=== PATIENT | male | born 1970 | race Caucasian/White ===

== ENCOUNTER → 2018-08-11 | Outpatient (CLI) | payer SELFPAY ==
[2018-08-11 20:02] LABS: URIC ACID 7.8 MG/DL (3.5-7.2)
== END ==
LOC: M WUC 16:03
DX: M10.072 Idiopathic gout, left ankle and foot (principal)
CPT/HCPCS: 84550

== ENCOUNTER 2019-10-26 06:53 | Day surgery (SDC) | payer BC ==
[~2019-10-26] VITALS: Ht 182.9 cm; Wt 114.8 kg
[~2019-10-26 06:53] MED LIST: COQ-100C5 PO; ENAL5TAB7 PO; FISH1000 PO; VITA400T15 PO
[2019-10-26] MEDS ORDERED: NS 1,000 ML IV ONE (07:00)
[2019-10-26] MEDS ORDERED: PROPOFOL 200 MG/20 ML VIAL As Ordered ONE (07:14)
[2019-10-26] MEDS ORDERED: ASPI81TA85 PO (07:32)
[2019-10-26] MEDS ORDERED: NON-325T5 PO (07:32)
--- NOTE | 2019-10-26 08:43 | ROOR ---
Patient Name: Ryan Lane Procedure Date: 10/26/2019 8:21 AM Date of : 1970 Age: 49 Room: [facility] Gender: Male Note Status: Finalized Procedure: Colonoscopy Indications: High risk colon cancer surveillance: Personal history of colonic polyps Providers: Randy FULLER MD Referring MD: DANIEL Duarte Requesting Provider: Medicines: Monitored Anesthesia Care Complications: No immediate complications. Procedure: Pre-Anesthesia Assessment: - The heart rate, respiratory rate, oxygen saturations, blood pressure, adequacy of pulmonary ventilation, and response to care were monitored throughout the procedure. The Colonoscope was introduced through the anus and advanced to the terminal ileum, with identification of the appendiceal orifice and IC valve. The colonoscopy was performed without difficulty. The patient tolerated the procedure well. The quality of the bowel preparation was good. Findings: The perianal and digital rectal examinations were normal. Multiple medium-mouthed diverticula were found in the sigmoid colon. Internal hemorrhoids were found during retroflexion. The hemorrhoids were medium-sized. The exam was otherwise without abnormality on direct and retroflexion views. Impression: - Diverticulosis in the sigmoid colon. - Internal hemorrhoids. - The colon examination was otherwise normal on direct and retroflexion views. - No specimens collected. Recommendation: - Repeat colonoscopy in 5 years for surveillance. Randy Fuller MD Randy FULLER MD 10/26/2019 8:43:18 AM Electronically signed by Randy FULLER MD Number of Addenda: 0 Note Initiated On: 10/26/2019 8:21 AM Estimated Blood Loss: Estimated blood loss: none.
[2019-10-26 09:00] VITALS: BP 133/81
== END 2019-10-26 09:10 | disposition home or self-care (01) ==
LOC: M OPP 06:53
PROVIDERS: ATTEND Internal Medicine Gastroenterology
DX: Z86.010 Personal history of colon polyps (principal); K57.30 Diverticulosis of large intestine without perforation or abscess without bleeding; K64.8 Other hemorrhoids; I10 Essential (primary) hypertension; G47.30 Sleep apnea, unspecified; Z79.899 Other long term (current) drug therapy; Z82.49 Family history of ischemic heart disease and other diseases of the circulatory system; Z80.1 Family history of malignant neoplasm of trachea, bronchus and lung

== ENCOUNTER → 2023-10-20 | Day surgery (SDC) | payer BC ==
[~2023-10-20] VITALS: Ht 182.9 cm; Wt 142.6 kg
[~2023-10-20] MED LIST changes: +ACET32TAB PO; +AMOX875T2 PO; +ASPI81TA86 PO; +BENZ200C70 PO; +CALTTAB6 PO; +CIDA500T2 PO; +CLAR10CA3 PO; +COLL1TAB PO; +D3 H10002 PO; +ENAL5TAB36 PO; -ENAL5TAB7 PO; +LIDOCAINE 2% 100MG/5ML SDV (FOR ANES.) As Ordered ONE; +LOSA100T5 PO; +NS 1,000 ML IV ONE; +OMEG12004 PO; +TARTCAP PO; +propofoL 200 MG/20 ML VIAL As Ordered ONE
[2023-10-20 10:04] VITALS: BP 134/63; TEMP 97.2; O2SAT 99
== END | disposition home or self-care (01) ==
LOC: M OPP 07:51
PROVIDERS: ATTEND Internal Medicine Gastroenterology
DX: Z12.11 Encounter for screening for malignant neoplasm of colon (principal); K57.30 Diverticulosis of large intestine without perforation or abscess without bleeding; Z86.010 Personal history of colon polyps; I10 Essential (primary) hypertension; G47.30 Sleep apnea, unspecified; Z87.19 Personal history of other diseases of the digestive system; Z79.899 Other long term (current) drug therapy; R73.03 Prediabetes